=== PATIENT | female | born 1985 | race African-American/Black ===

== ENCOUNTER 2021-06-09 15:16 | Emergency (ER) | payer OTHER, SELFPAY ==
--- NOTE | ~2021-06-09 | XR_ITS ---
EXAMINATION: XR chest 2V DATE: 06/09/2021 17:18 INDICATION: Cough, fever, chills and bodyaches. TECHNIQUE: PA and lateral views of the chest were obtained. COMPARISON: Chest radiograph dated 01/20/2014 FINDINGS: The lungs remain clear with no focal airspace opacities, pulmonary edema, pleural effusion or pneumot horax. The cardiomediastinal silhouette is normal. Visualized bones and soft tissues are unremarkable . IMPRESSION: 1. No acute cardiopulmonary disease. Reviewed, dictated and finalized at location A.
[2021-06-09 15:39] VITALS: BP 159/103; PULSE 80; RESP 16; TEMP 36.9; O2SAT 100
--- NOTE | 2021-06-09 17:06 | ED.FEVER ---
HPI - Fever General Chief Complaint: Fever Stated Complaint: chills, aches, fever Time Seen by Provider: 06/09/21 16:47 History of Present Illness HPI Narrative: 35-year-old female presents to the emergency room cute onset of body aches, fever, generalized weakness for 4 days. Patient states that she has been alternating Tylenol and ibuprofen for aches and pains and fever. 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 Patient reports an acute onset of cough that began today. Patient denies any shortness of breath or difficulty breathing. Related Data Allergies Allergy/AdvReac Type Severity Reaction Status Date / Time No Known Allergies Allergy Unknown Unverified 10/09/16 11:30 Review of Systems Review of Systems: CONSTITUTIONAL: Reports fever, body aches EYES: Denies visual changes, redness, or discharge. ENT: Denies rhinorrhea, congestion, sore throat, or otalgia. CARDIOVASCULAR: Denies chest pain, palpitations, or edema. RESPIRATORY: Denies cough or dyspnea. GASTROINTESTINAL: Denies abdominal pain, nausea, vomiting, or diarrhea. GENITOURINARY: Reports cough SKIN: Denies rash or itching. MUSCULOSKELETAL: Denies back pain, joint pain, or myalgia. NEUROLOGIC: Reports weakness PSYCHIATRIC: Denies anxiety or depression. [facility] Social History Social History Smoking status: Current every day smoker Alcohol intake: never Exam Narrative: GENERAL: Well-appearing, well-nourished, and in no acute distress. HEAD: Normocephalic, atraumatic. EYES: PERRLA and EOMI. CHEST: Clear to auscultation. No respiratory distress. No wheezes rales or rhonchi HEART: Regular rate and rhythm. No murmur heard. Normal peripheral pulses. ABDOMEN: Soft, nontender, nondistended, normal active bowel sounds. EXTREMITIES: Normal range of motion. No edema. SKIN: Warm, dry, no rash. NEURO: No focal deficits. Alert and oriented x3. PSYCH: Normal mood and affect. Course AMBULATORY NURSE/PA Physician Supervision 1830: Discussed with patient that her blood sugar was over 375. Patient states that she just recently ate something. Also told patient that her hemoglobin A1c was over 10, and that her diabetes was out of control. Patient states that she no longer takes her glipizide, as she is trying to manage her blood sugars through diet. Strongly encourage patient to follow-up with her PCP to restart her diabetes medications. Patient stated understanding Vital Signs Vital signs: Vital Signs Temperature 36.9 C 06/09/21 15:39 Pulse Rate 80 06/09/21 15:39 Respiratory Rate 16 06/09/21 15:39 Blood Pressure 159/103 H 06/09/21 15:39 Pulse Oximetry 100 06/09/21 15:39 Temperature 36.9 C 06/09/21 15:39 Pulse Rate 80 06/09/21 15:39 Respiratory Rate 16 06/09/21 15:39 Blood Pressure 159/103 H 06/09/21 15:39 Pulse Oximetry 100 06/09/21 15:39 MDM - Fever Medical Records Attestation: I reviewed the patient's medical records. Lab Data Attestation: I reviewed the patient's lab results. Labs: Influenza A Screen Negative Reference Range: Negative Influenza B Screen Negative Reference Range: Negative Imaging Data Radiologist's impression: Impressions Chest X-Ray 06/09/21 17:20 IMPRESSION: 1. No acute cardiopulmonary disease. Discharge Plan Discharge Clinical Impression: COVID Type 2 diabetes mellitus Qualifiers: Diabetes mellitus correction insulin use: without assistant terminal manager use Diabetes mellitus complication status: without complication Qualified Code(s): E11.9 - Type 2 diabetes mellitus without complications Patient Disposition: Home, Self-Care Condition: Stable Instructions: Antibiotic Form, COVID-19 (Coronavirus Disease 2019) (ED) Prescriptions: New metformin 500 mg tabl
[2021-06-09 17:16] LABS: Basophils Percent Auto 0.9 % (0.2-1.2); Eosinophils Percent Auto 0.6 % (0-4.4); Hematocrit 45.2 % (37.0-47.0); Hemoglobin 14.8 g/dL (12.0-15.0); Immature Granulocyte Absolute 0.01 K/mm3 (0.00-0.031); Immature Granulocyte Percent A 0.2 % (0-0.5); Lymphocytes Absolute Auto 2.93 K/mm3 (0.9-3.2); Mean Corpuscular HGB Conc 32.7 g/dl (32-36); Mean Corpuscular Hemoglobin 28.8 pg (26-34); Mean Corpuscular Volume 87.9 fl (80-100); Mean Platelet Volume 10.1 fl (7.4-10.4); Monocytes Absolute Auto 0.5 K/mm3 (0.1-0.6); Monocytes Percent Auto 9.7 % (2.6-8.5); Neutrophils Absolute Auto 1.2 K/mm3 (1.3-6.7); Neutrophils Percent Auto 25.6 % (45.5-73.1); Platelet Count Result 189 k/mm3 (150-375); Red Blood Count 5.14 M/mm3 (4.2-5.4); Red Cell Distribution Width 13.1 % (11.5-14.5); White Blood Count 4.7 K/mm3 (4.5-10.0)
[2021-06-09 17:28] LABS: Alanine Aminotransferase 22 U/L (4-35); Albumin Level 3.7 g/dL (3.5-5.1); Alkaline Phosphatase 71 U/L (38-126); Anion Gap 7 mmol/L (8-16); Aspartate Amino Transferase 31 U/L (14-36); Bilirubin,Total 0.4 mg/dL (0.2-1.3); Blood Urea Nitrogen 8 mg/dL (7-17); Calcium 8.6 mg/dL (8.4-10.2); Carbon Dioxide 25 mmol/L (22-30); Chloride 101 mmol/L (98-107); Estimated CRCL calculation 147 ml/min; Estimated Glomerular Filt Rate > 60; Glucose 360 mg/dL (65-110); Potassium 3.9 mmol/L (3.4-5.0); Sodium 133 mmol/L (137-145)
[2021-06-09 17:52] LABS: SARS-CoV-2 RNA PCR Positive
[2021-06-09 18:20] LABS: Hemoglobin A1C 10.1 % (<5.7)
== END 2021-06-09 18:48 | disposition home or self-care (01) ==
LOC: ANHED 18:34
PROVIDERS: Emergency Provider Nurse Practitioner Family; PCP Physician Assistant
DX: U07.1 COVID-19 (principal); E11.9 Type 2 diabetes mellitus without complications; F17.200 Nicotine dependence, unspecified, uncomplicated
CPT/HCPCS: 36415; 71046; 80053; 83036; 85025; 87804; 99283; C9803; U0003; U0005

== ENCOUNTER 2021-06-26 17:37 | Emergency (ER) | payer OTHER, SELFPAY ==
--- NOTE | ~2021-06-26 | XR_ITS ---
EXAM: XR knee RT min 4V HISTORY: Pain w/ Heat . COMPARISON: None available. FINDINGS: Normal mineralization. No fracture or dislocation. No lytic or blastic lesion. Moderate tr icompartmental osteoarthritis. No erosion or periosteal change. Soft tissues within normal limits. La rge volume joint effusion. IMPRESSION: No acute osseous finding in the right knee. Reviewed, dictated and finalized at location K.
[2021-06-26 17:47] VITALS: BP 183/93; PULSE 84; RESP 18; TEMP 36.2; O2SAT 100
--- NOTE | 2021-06-26 19:25 | ED.GENADULT ---
HPI - General Adult General Chief complaint: Extremity Injury, Lower Stated complaint: R KNEE INJURY Time Seen by Provider: 06/26/21 19:14 Source: patient Mode of arrival: ambulatory Limitations: no limitations History of Present Illness HPI narrative: 35-year-old female presenting to the emergency department for evaluation of right knee pain. Patient states on Saturday or Saturday she missed stepped while going upstairs and did twist her right knee. Patient has been taking Tylenol and ibuprofen for pain control. Patient states she has had persistent pain with weightbearing. Patient states due to her job she is unable to rest of the knee. Patient describes medial knee pain that radiates anteriorly. Related Data Allergies Allergy/AdvReac Type Severity Reaction Status Date / Time amoxicillin AdvReac Rash Verified 06/26/21 17:51 Review of Systems Review of Systems: CONSTITUTIONAL: Denies fever, chills, or sweats. EYES: Denies visual changes, redness, or discharge. ENT: Denies rhinorrhea, congestion, sore throat, or otalgia. CARDIOVASCULAR: Denies chest pain, palpitations, or edema. RESPIRATORY: Denies cough or dyspnea. GASTROINTESTINAL: Denies abdominal pain, nausea, vomiting, or diarrhea. GENITOURINARY: Denies dysuria or hematuria. SKIN: Denies rash or itching. MUSCULOSKELETAL: See HPI NEUROLOGIC: Denies headache, numbness, or weakness. All systems reviewed & are unremarkable except as noted in HPI and below PMFSH Social History Social History Smoking status: Current every day smoker Alcohol intake: never Exam Narrative: APPEARANCE: Well appearing, no pain, no distress, well-nourished. HEAD: normocephalic, atraumatic. EYES: PERRLA/EOMI, conjunctivae clear. NECK: Supple. No adenopathy, no masses. RESPIRATORY: Airway patent, respirations nonlabored. Clear to auscultation bilaterally, no rales, rhonchi, wheezing. CARDIOVASCULAR: Regular rate and rhythm without murmurs rubs or gallops. ABDOMINAL: Soft, nontender, nondistended, normal bowel sounds MUSCULOSKELETAL: Anterior knee tenderness to palpation. No effusion, no ecchymosis, no deformity.. NEURO: Alert. Cranial nerves II through XII intact. Grossly intact SKIN: Warm, dry. Normal Color Course Course Emergency Course: Patient was updated on the results of her x-ray. X-ray showed no acute fracture or deformity. Patient was provided crutches and knee immobilizer for limited weightbearing. Patient was encouraged to have close follow-up with her primary care physician and with orthopedics. All questions concerns were addressed Vital Signs Vital signs: Vital Signs Temperature 97.2 F L 06/26/21 17:47 Pulse Rate 84 06/26/21 17:47 Respiratory Rate 18 06/26/21 17:47 Blood Pressure 183/93 H 06/26/21 17:47 Pulse Oximetry 100 06/26/21 17:47 Temperature 97.2 F L 06/26/21 17:47 Pulse Rate 76 06/26/21 19:43 Respiratory Rate 14 06/26/21 19:43 Blood Pressure 156/96 H 06/26/21 19:43 Pulse Oximetry 100 06/26/21 19:43 Medical Decision Making Vital Signs Vital Signs: Vital Signs Temperature 97.2 F L 06/26/21 17:47 Pulse Rate 84 06/26/21 17:47 Respiratory Rate 18 06/26/21 17:47 Blood Pressure 183/93 H 06/26/21 17:47 Pulse Oximetry 100 06/26/21 17:47 Temperature 97.2 F L 06/26/21 17:47 Pulse Rate 76 06/26/21 19:43 Respiratory Rate 14 06/26/21 19:43 Blood Pressure 156/96 H 06/26/21 19:43 Pulse Oximetry 100 06/26/21 19:43 Imaging Data Radiologist's impression: IMPRESSION: No acute osseous finding in the right knee. Discharge Plan Discharge Clinical Impression: Knee strain Qualifiers: Encounter type: initial encounter Laterality: right Qualified Code(s): S86.911A - Strain of unspecified muscle(s) and tendon(s) at lower leg level, right leg, initial encounter Patient Disposition: Home, Self-Care Condition: Stable Instructions: Antibiotic Form,
[2021-06-26 19:43] VITALS: BP 156/96; PULSE 76; RESP 14; O2SAT 100
== END 2021-06-26 19:48 | disposition home or self-care (01) ==
LOC: ANHED 19:43
PROVIDERS: Emergency Provider Emergency Medicine; PCP Physician Assistant
DX: S86.911A Strain of unspecified muscle(s) and tendon(s) at lower leg level, right leg, initial encounter (principal); F17.200 Nicotine dependence, unspecified, uncomplicated; X50.9XXA Other and unspecified overexertion or strenuous movements or postures, initial encounter
CPT/HCPCS: 73140; 73564; 99283

== ENCOUNTER 2021-12-10 07:55 | Emergency (ER) | payer OTHER, SELFPAY ==
[2021-12-10 07:58] VITALS: BP 191/100; PULSE 87; RESP 20; TEMP 36.9; O2SAT 100
[2021-12-10 08:56] LABS: Influenza A QL RT-PCR Negative (Negative); Influenza B QL RT-PCR Negative (Negative); SARS-CoV-2 RNA PCR Negative
--- NOTE | 2021-12-10 09:35 | ED.URI ---
HPI - URI/Sore Throat General Chief Complaint: Upper Respiratory Infection Stated Complaint: cough x 1 week Time Seen by Provider: 12/10/21 08:56 History of Present Illness HPI Narrative: 36-year-old female history of diabetes presents to the emergency room for evaluation of sinus congestion, postnasal drip, sneezing, productive cough, irritated throat and popping sensation in her ears. Reports symptoms of been present for a week has been taking Tylenol and TheraFlu with no relief. Denies fevers, shortness of breath or difficulty breathing. Denies chest pains. Related Data Allergies Allergy/AdvReac Type Severity Reaction Status Date / Time amoxicillin AdvReac Rash Verified 06/26/21 17:51 Review of Systems Review of Systems: CONSTITUTIONAL: Denies fever, chills, or sweats. EYES: Denies visual changes, redness, or discharge. ENT: Reports rhinorrhea, congestion, sore throat, or otalgia. CARDIOVASCULAR: Denies chest pain, palpitations, or edema. RESPIRATORY: Reports cough GASTROINTESTINAL: Denies abdominal pain, nausea, vomiting, or diarrhea. GENITOURINARY: Denies dysuria or hematuria. SKIN: Denies rash or itching. MUSCULOSKELETAL: Denies back pain, joint pain, or myalgia. NEUROLOGIC: Denies headache, numbness, dizziness, or weakness. PSYCHIATRIC: Denies anxiety or depression. [facility] Social History Social History Smoking status: Current every day smoker Alcohol intake: never Exam Narrative: GENERAL: Well-appearing, well-nourished, no physical limitations, and in no acute distress. HEAD: Normocephalic, atraumatic. EYES: Conjunctivae normal, PERRLA and EOMI. ENT: External nose normal, clear rhinorrhea. Mucous membranes moist. Oropharynx without tonsillar hypertrophy exudate or other lesions. External ears normal, bilateral TMs normal bilaterally with clear effusion NECK: Supple. No adenopathy or masses. CHEST: Clear to auscultation. No respiratory distress. No wheezes rales or rhonchi. HEART: Regular rate and rhythm. No murmur heard. Normal peripheral pulses. EXTREMITIES: Normal range of motion. No edema. No clubbing or cyanosis SKIN: Warm, dry, no rash. No noted wounds NEURO: No focal deficits. Alert and oriented x3. MAEW. CN's II-XI intact bilaterally, normal gait PSYCH: Cooperative. Normal mood and affect. Course Vital Signs Vital signs: Vital Signs Temperature 36.9 C 12/10/21 07:58 Pulse Rate 87 12/10/21 07:58 Respiratory Rate 20 12/10/21 07:58 Blood Pressure 191/100 H 12/10/21 07:58 Pulse Oximetry 100 12/10/21 07:58 Oxygen Delivery Room Air 12/10/21 07:58 Temperature 36.9 C 12/10/21 07:58 Pulse Rate 87 12/10/21 07:58 Respiratory Rate 20 12/10/21 07:58 Blood Pressure 191/100 H 12/10/21 07:58 Pulse Oximetry 100 12/10/21 07:58 Oxygen Delivery Room Air 12/10/21 07:58 MDM - URI/Sore Throat Lab Data Labs: Lab Results 12/10/21 Range/Units 08:02 Influenza A (RT-PCR) Negative (Negative) Influenza B (RT-PCR) Negative (Negative) SARS-CoV-2 RNA (RT-PCR) Negative Discharge Plan Discharge Clinical Impression: Upper respiratory infection Patient Disposition: Home, Self-Care Condition: Stable Instructions: Antibiotic Form, Cold Symptoms (ED) Prescriptions: New pseudoephedrine HCl [Sudogest] 30 mg tablet 30 mg PO Q4-6H PRN (Reason: nasal congestion) Qty: 30 0RF Rx Instructions: DNExceed 4 doses/24h fluticasone propionate [24 Hour Allergy Relief] 50 mcg/actuation spray,suspension 1 spray intranasal DAILY Qty: 16 0RF Rx Instructions: administer into each nostril prednisone 20 mg tablet 20 mg PO DAILY Qty: 5 0RF loratadine [Allergy Relief (loratadine)] 10 mg tablet 10 mg PO DAILY Qty: 30 0RF No Action metformin 500 mg tablet 500 mg PO BID Qty: 60 0RF hydrocodone-acetaminophen 5-325 mg tablet 1 tablet PO Q8H PRN (Reason: pa
[2021-12-10 09:45] VITALS: RESP 16
== END 2021-12-10 09:46 | disposition home or self-care (01) ==
PROVIDERS: Emergency Medicine; Emergency Provider Nurse Practitioner Family; PCP Physician Assistant
DX: J06.9 Acute upper respiratory infection, unspecified (principal); Z20.822 Contact with and (suspected) exposure to COVID-19; E11.9 Type 2 diabetes mellitus without complications; F17.200 Nicotine dependence, unspecified, uncomplicated; Z79.84 Long term (current) use of oral hypoglycemic drugs
CPT/HCPCS: 87502; 96372; 99283; J1100; U0003; U0005

== ENCOUNTER 2022-02-08 16:43 | Emergency (ER) | payer OTHER, SELFPAY ==
[2022-02-08 16:49] VITALS: BP 179/93; PULSE 94; RESP 16; TEMP 37.4; O2SAT 99
--- NOTE | 2022-02-08 17:50 | ED.SKABFB ---
HPI - Skin/Abscess/Foreign Bdy General Chief complaint: Skin/Abscess/Foreign Body Stated complaint: SCALP SORE L FACIAL SWELLING Time Seen by Provider: 02/08/22 17:27 History of Present Illness HPI narrative: 36-year-old female history of diabetes presents to the emergency room for evaluation of a painful. States ulceration to the top of her scalp. Patient noted some redness and tenderness on her scalp at the base of one of her hair extensions. Patient states that she release to her extension to find an area that was red, painful, warm to the touch and draining purulent drainage. States since yesterday she has began to develop some swelling to the left side of her scalp that extends into the left side of her face. Patient also endorses a low-grade fever and generalized malaise. Has been regular taking Tylenol and ibuprofen with no relief. Related Data Allergies Allergy/AdvReac Type Severity Reaction Status Date / Time amoxicillin AdvReac Rash Verified 06/26/21 17:51 Review of Systems Review of Systems: CONSTITUTIONAL: Denies fever, chills, or sweats. EYES: Denies visual changes, redness, or discharge. ENT: Denies rhinorrhea, congestion, sore throat, or otalgia. CARDIOVASCULAR: Denies chest pain, palpitations, or edema. RESPIRATORY: Denies cough or dyspnea. GASTROINTESTINAL: Denies abdominal pain, nausea, vomiting, or diarrhea. GENITOURINARY: Denies dysuria or hematuria. SKIN: Denies rash or itching. MUSCULOSKELETAL: Denies back pain, joint pain, or myalgia. NEUROLOGIC: Denies headache, numbness, dizziness, or weakness. PSYCHIATRIC: Denies anxiety or depression. PMFSH Social History Social History Smoking status: Current every day smoker Alcohol intake: never Exam Narrative: GENERAL: Well-appearing, well-nourished, no physical limitations, and in no acute distress. HEAD: Normocephalic, atraumatic. EYES: Conjunctivae normal, PERRLA and EOMI. CHEST: Clear to auscultation. No respiratory distress. No wheezes rales or rhonchi. HEART: Regular rate and rhythm. No murmur heard. Normal peripheral pulses. ABDOMEN: Soft, nontender, nondistended, normal active bowel sounds. SKIN: Scalp: 1 x 1 cm area of ulceration with surrounding erythema draining purulent drainage. Swelling noted to the scalp that extends into the left side of the face. NEURO: No focal deficits. Alert and oriented x3. MAEW. CN's II-XI intact bilaterally, normal gait PSYCH: Cooperative. Normal mood and affect. Course Vital Signs Vital signs: Vital Signs Temperature 37.4 C 02/08/22 16:49 Pulse Rate 94 02/08/22 16:49 Respiratory Rate 16 02/08/22 16:49 Blood Pressure 179/93 H 02/08/22 16:49 Pulse Oximetry 99 02/08/22 16:49 Oxygen Delivery Room Air 02/08/22 16:49 Temperature 37.4 C 02/08/22 16:49 Pulse Rate 94 02/08/22 16:49 Respiratory Rate 16 02/08/22 16:49 Blood Pressure 179/93 H 02/08/22 16:49 Pulse Oximetry 99 02/08/22 16:49 Oxygen Delivery Room Air 02/08/22 16:49 Discharge Plan Discharge Clinical Impression: Cellulitis, Abscess of skin or subcutaneous tissue Patient Disposition: Home, Self-Care Condition: Stable Instructions: Antibiotic Form, Cellulitis (ED), Abscess (ED) Prescriptions: New sulfamethoxazole-trimethoprim [Bactrim DS] 800-160 mg tablet 2 tablet PO Q12H 7 Days Qty: 28 0RF acetaminophen-codeine 300-15 mg tablet 1 tablet PO Q8H PRN (Reason: pain) Qty: 12 0RF No Action metformin 500 mg tablet 500 mg PO BID Qty: 60 0RF hydrocodone-acetaminophen 5-325 mg tablet 1 tablet PO Q8H PRN (Reason: pain) Qty: 10 0RF pseudoephedrine HCl [Sudogest] 30 mg tablet 30 mg PO Q4-6H PRN (Reason: nasal congestion) Qty: 30 0RF Rx Instructions: DNExceed 4 doses/24h fluticasone propionate [24 Hour Allergy Relief] 50 mcg/actuation spray,suspension 1 spray intranasal DAILY Qty: 16 0RF Rx Instructions:
[2022-02-08] MEDS: SULFAMETHOXAZOLE/TRIMETHOPRIM 800/160 MG DS TABLET 2 TAB PO (18:46)
[2022-02-08] MEDS: ACETAMINOPHEN/CODEINE (*CRX) 300/30 MG TABLET 1 TAB PO (18:47)
== END 2022-02-08 18:51 | disposition home or self-care (01) ==
LOC: ANHED 18:18
PROVIDERS: Emergency Provider Nurse Practitioner Family; PCP Physician Assistant
DX: L03.811 Cellulitis of head [any part, except face] (principal); F17.200 Nicotine dependence, unspecified, uncomplicated
CPT/HCPCS: 99283; A9270

== ENCOUNTER 2022-09-03 13:40 | Emergency (ER) | payer OTHER, SELFPAY ==
--- NOTE | ~2022-09-03 | XR_ITS ---
XR abdomen obstructive series DATE: 09/03/2022 15:48 INDICATION: TECHNIQUE: Supine and upright AP views COMPARISON: None FINDINGS: The psoas shadows are intact. There is no evidence of bowel obstruction. There is a modera tely prominent of fecal material in the colon. No visceromegaly or abnormal calcification is evident. Heart size appears normal. The lung bases are clear. No intraperitoneal free air is detected. IMPRESSION: No significant abnormality Reviewed, dictated and finalized at Location [facility]. Reviewed, dictated and finalized at location B. IMPRESSION: No significant abnormality
[2022-09-03 13:44] VITALS: BP 150/92; PULSE 102; RESP 14; TEMP 36.9; O2SAT 100
[2022-09-03 13:57] LABS: Basophils Percent Auto 0.5 % (0.2-1.2); Eosinophils Absolute Auto 0.1 K/mm3 (0-0.3); Hematocrit 40.3 % (37.0-47.0); Hemoglobin 12.9 g/dL (12.0-15.0); Immature Granulocyte Absolute 0.04 K/mm3 (0.00-0.031); Immature Granulocyte Percent A 0.5 % (0-0.5); Lymphocytes Absolute Auto 3.04 K/mm3 (0.9-3.2); Lymphocytes Percent Auto 36.8 % (18.3-44.2); Mean Corpuscular Volume 87.4 fl (80-100); Mean Platelet Volume 9.6 fl (7.4-10.4); Monocytes Absolute Auto 0.6 K/mm3 (0.1-0.6); Monocytes Percent Auto 7.1 % (2.6-8.5); Neutrophils Absolute Auto 4.5 K/mm3 (1.3-6.7); Neutrophils Percent Auto 54.1 % (45.5-73.1); Platelet Count Result 314 k/mm3 (150-375); Red Blood Count 4.61 M/mm3 (4.2-5.4); Red Cell Distribution Width 13.3 % (11.5-14.5); White Blood Count 8.3 K/mm3 (4.5-10.0)
[2022-09-03 14:09] LABS: Alanine Aminotransferase 25 U/L (6-35); Albumin Level 4.1 g/dL (3.5-5.1); Alkaline Phosphatase 69 U/L (38-126); Anion Gap 8 mmol/L (8-16); Aspartate Amino Transferase 25 U/L (14-36); Bilirubin,Total 0.6 mg/dL (0.2-1.3); Blood Urea Nitrogen 11 mg/dL (7-17); Carbon Dioxide 22 mmol/L (22-30); Chloride 106 mmol/L (98-107); Estimated CRCL calculation 123 ml/min; Estimated Glomerular Filt Rate > 60; Glucose 206 mg/dL (65-110); Lipase 67 U/L (23-300); Potassium 3.7 mmol/L (3.4-5.0); Sodium 136 mmol/L (137-145)
--- NOTE | 2022-09-03 14:41 | PC.NURSE ---
Pt back to room and unable to urinate at this time, water given for hydration.
[2022-09-03 15:10] LABS: Appearance Urine Turbid (Clear); Bacteria Urine None Seen /hpf; Bilirubin Urine Negative (Negative); Blood Urine 3+ (Negative); Color Urine Dark Yellow (Yellow); Glucose Urine UA Trace mg/dL (Negative); Ketones Urine Trace mg/dL (Negative); Leukocyte Esterase Ur 3+ LEU/UL (Negative); Nitrate Urine Negative (Negative); Protein Urine 3+ mg/dL (Negative); RBC Urine >100 /hpf (0-2); Specific Grav Ur 1.024 (1.001-1.035); Squamous Epithelial Cell Urine Occasional /hpf (Few); WBC Urine >100 /hpf; pH Urine 5.5 (5.0-9.0)
[2022-09-03 15:14] LABS: Add Urine Microscopic? YES
--- NOTE | 2022-09-03 15:41 | ED.FEMALEGU ---
HPI - Female Genitourinary General Chief complaint: Urogenital-Female Stated complaint: uti symptoms/vomiting Time Seen by Provider: 09/03/22 14:51 History of Present Illness HPI Narrative: 36-year-old female presented the emergency department for evaluation of increased urinary pressure. Patient states that she did have some urinary pressure last week and did have some nausea and vomiting on Saturday. Patient denies any specific burning with urination. Related Data Allergies Allergy/AdvReac Type Severity Reaction Status Date / Time amoxicillin AdvReac Rash Verified 06/26/21 17:51 Review of Systems Review of Systems: All systems reviewed & are unremarkable except as noted in HPI and below PMFSH Social History Social History Smoking status: Current every day smoker Alcohol intake: never Exam Narrative: APPEARANCE: Well appearing, no pain, no distress, well-nourished. HEAD: normocephalic, atraumatic. EYES: PERRLA/EOMI, conjunctivae clear. NOSE: Normal no drainage NECK: Supple. No adenopathy, no masses. RESPIRATORY: Airway patent, respirations nonlabored. Clear to auscultation bilaterally, no rales, rhonchi, wheezing. CARDIOVASCULAR: Regular rate and rhythm without murmurs rubs or gallops. ABDOMINAL: Soft, nontender, nondistended, normal bowel sounds MUSCULOSKELETAL: Moves all extremities. Strength/ROM intact, No edema, No calf tenderness. NEURO: Alert. Cranial nerves II through XII intact. Grossly intact SKIN: Warm, dry. Normal Color Course Course Emergency Course: 36-year-old female presented ED for evaluation of urinary symptoms. Patient was afebrile with no leukocytosis. Patient's creatinine is at baseline. No significant [place] abnormalities. UA is concerning for urinary tract infection. Urine culture is pending. Patient does have a history of allergies to amoxicillin so she was started on Bactrim. X-ray was negative for obstruction. Patient was updated results of the work-up and plan for treatment with antibiotics for urinary tract infection. Patient was encouraged to increase her water intake and to take MiraLAX for her constipation. All questions and concerns were addressed Vital Signs Vital signs: Vital Signs Temperature 98.5 F 09/03/22 13:44 Pulse Rate 102 H 09/03/22 13:44 Respiratory Rate 14 09/03/22 13:44 Blood Pressure 150/92 H 09/03/22 13:44 Pulse Oximetry 100 09/03/22 13:44 Oxygen Delivery Room Air 09/03/22 13:44 Temperature 98.5 F 09/03/22 13:44 Pulse Rate 91 09/03/22 17:44 Respiratory Rate 18 09/03/22 17:44 Blood Pressure 141/87 H 09/03/22 17:44 Pulse Oximetry 98 09/03/22 17:44 Oxygen Delivery Room Air 09/03/22 13:44 MDM - Female Genitourinary Differential Diagnosis Differential diagnosis: Likely urinary tract infection Lab Data Attestation: I reviewed the patient's lab results. 09/03/22 13:48 09/03/22 13:48 Labs: Lab Results 09/03/22 09/03/22 Range/Units 13:48 14:59 WBC 8.3 (4.5-10.0) K/mm3 RBC 4.61 (4.2-5.4) M/mm3 Hgb 12.9 (12.0-15.0) g/dL Hct 40.3 (37.0-47.0) % MCV 87.4 (80-100) fl MCH 28.0 (26-34) pg MCHC 32.0 (32-36) g/dl RDW 13.3 (11.5-14.5) % Plt Count 314 D (150-375) k/mm3 MPV 9.6 (7.4-10.4) fl Immature Gran % (Auto) 0.5 (0-0.5) % Neut % (Auto) 54.1 (45.5-73.1) % Lymph % (Auto) 36.8 (18.3-44.2) % [place] % (Auto) 7.1 (2.6-8.5) % Eos % (Auto) 1.0 (0-4.4) % Baso % (Auto) 0.5 (0.2-1.2) % Lymph # (Auto) 3.04 (0.9-3.2) K/mm3 [place] # (Auto) 0.6 (0.1-0.6) K/mm3 Eos # (Auto) 0.1 (0-0.3) K/mm3 Baso # (Auto) 0.0 (0.0-0.1) K/mm3 Abs Immat Gran (auto) 0.04 H (0.00-0.031) K/mm3 Absolute Neuts (auto) 4.5 (1.3-6.7) K/mm3 Absolute Nucleated RBC 0.0 (0.0-0.012) K/mm3 Nucleated RBC % 0.0 (0.0-0.2) % Sodium 136 L (137-145) mmol/L Potassium 3.7
[2022-09-03] MEDS: SULFAMETHOXAZOLE/TRIMETHOPRIM 800/160 MG DS TABLET 1 TAB PO (15:49)
[2022-09-03 17:44] VITALS: BP 141/87; PULSE 91; RESP 18; O2SAT 98
== END 2022-09-03 17:47 | disposition home or self-care (01) ==
PROVIDERS: Emergency Medicine; Emergency Provider Emergency Medicine; PCP Physician Assistant
DX: N39.0 Urinary tract infection, site not specified (principal); F17.200 Nicotine dependence, unspecified, uncomplicated
CPT/HCPCS: 36415; 74019; 80053; 81001; 81025; 83690; 85025; 87077; 87086; 87186; 99283; A9270

== ENCOUNTER 2023-02-01 15:58 | Outpatient (CLI) | payer OTHER, SELFPAY ==
--- NOTE | ~2023-02-01 | US_ITS ---
US OB <=14 wk fetus w TV DATE: 02/01/2023 17:25 INDICATION: with inconclusive viability TECHNIQUE: Real-time imaging and Doppler analysis COMPARISON: None FINDINGS: The uterus measures 10.6 cm height, 6.6 cm AP and 7 cm transverse dimension. An intrauterine gestational sac is identified with pole and yolk sac noted. heart rate of 173 bpm. [place]-rump length 0.9 cm consistent with estimated gestational age of 7 weeks +/- 4 days with WANDY of 09/20/2023. There is some apparent blood in the endometrial cavity. Approximately 2 cm left ovarian cyst. There is a complex mass in the right adnexal area measuring up to 10.6 x 8.8 cm, with containing some fat, with some shadowing. Consider dermoid. 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 Reviewed, dictated and finalized at location A. 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
== END 2023-02-01 15:59 | disposition home or self-care (01) ==
PROVIDERS: PCP Physician Assistant; Visit Provider Registered Nurse
DX: O36.80X0 Pregnancy with inconclusive fetal viability, not applicable or unspecified (principal); Z3A.01 Less than 8 weeks gestation of pregnancy; N83.202 Unspecified ovarian cyst, left side
CPT/HCPCS: 76801; 76817

== ENCOUNTER 2023-02-21 14:01 | Outpatient (CLI) | payer OTHER, SELFPAY ==
[2023-02-24 04:25] LABS: CA-125 90 U/mL (<35)
== END 2023-02-21 14:02 | disposition home or self-care (01) ==
LOC: ANHLAB 14:02
PROVIDERS: PCP Physician Assistant; Visit Provider Obstetrics & Gynecology
DX: O34.81 Maternal care for other abnormalities of pelvic organs, first trimester (principal); N94.89 Other specified conditions associated with female genital organs and menstrual cycle
CPT/HCPCS: 36415; 86304

== ENCOUNTER 2023-02-27 10:25 | Emergency (ER) | payer OTHER, SELFPAY ==
--- NOTE | ~2023-02-27 | US_ITS ---
CORRECTED REPORT corrected examination description [facility] [place] This report was recreated on 02/28/23. Original report was DER HEN SERVICE TECHNICIAN EXAMINATION: US OB <= 14 weeks fetus w TV DATE: INDICATION: Abdominal pain during first trimester of TECHNIQUE: Real-time pelvic ultrasound utilizing both a transvaginal and transabdominal probe was performed. The interpreting radiologist was not present for the study. COMPARISON: None. FINDINGS: The uterus measures 9.4 x 6.3 x 7.4 cm. There is an intrauterine gestational sac. A yolk sac and pole are identified. The crown rump length measures 2.1 cm, which correlates with an estimated gestational age of 8 weeks and 5 days. This is significantly discordant with the estimated gestational age of 10 weeks and 5 days based upon the ultrasound from approximately 4 weeks prior. There is no evident heart motion on either cine grayscale, color or M-mode Doppler consistent with demise. Again seen is an 8.3 x 5.2 x 7.7 cm mass which is peripherally hypoechoic and centrally hypoechoic with posterior acoustic shadowing which is suggestive of an ovarian dermoid. The left ovary measures 4.0 x 2.4 x 3.6 cm. No significant interval change in a 2.1 cm anechoic left ovarian cyst/follicle. There is no free fluid in the pelvis. IMPRESSION: 1. demise with single intrauterine gestational sac containing a pole which has not demonstrated appropriate interval growth and which is without evident cardiac motion. 2. 8.3 cm right adnexal mass with appearance suspicious for an ovarian dermoid. Reviewed, dictated and finalized at location A. DER HEN SERVICE TECHNICIAN MTDD IMPRESSION: 1. demise with single intrauterine gestational sac containing a alex e which has not demonstrated appropriate interval growth and which is wit hout evident cardiac motion. 2. 8.3 cm right adnexal mass with appearance suspicious for an ovarian dermoid.
[2023-02-27 10:26] VITALS: BP 194/85; PULSE 77; RESP 18; TEMP 36.4; O2SAT 100
--- NOTE | 2023-02-27 10:45 | ED.ABDPAIN ---
HPI - Abdominal Pain General Chief Complaint: Abdominal Pain Stated Complaint: possible miscarriage Time Seen by Provider: 02/27/23 10:42 History of Present Illness HPI narrative: Patient is a 37-year-old female who presents to the emergency department this afternoon complaining of abdominal cramping which started yesterday. Patient states that she is approximately 8 weeks and is concerned that she is suffering a miscarriage. Patient states that she has had an ultrasound in this already around 7 weeks and at that time they did see an intrauterine with good heart tones. She is currently denying any vaginal bleeding or spotting. Patient denies any additional symptoms including chest pain, shortness of breath, nausea, vomiting, dysuria, hematuria, constipation, diarrhea, melena, hematochezia, fevers or chills. Patient also denies any headaches, dizziness, lightheadedness, blurry visions, focal weakness, numbness and or tingling. There are no other modifying, alleviating, or precipitating factors at this time. Related Data Home Medications Medication Instructions Recorded Confirmed dulaglutide 4.5 mg/0.5 mL 4.5 mg subcut WEEKLY 01/23/23 subcutaneous pen injector (Trulicity) Allergies Allergy/AdvReac Type Severity Reaction Status Date / Time amoxicillin AdvReac Rash Verified 02/26/23 13:16 Review of Systems Review of Systems: All systems are reviewed and are negative unless stated otherwise in the HPI. [facility] Past Medical History Medical History Enlarged thyroid Family History Family History Other Diabetes mellitus Social History Social History Smoking packs per day: 0.5 Smoking cigarettes per day: 10.0 Smoking status: Current every day smoker Tobacco type: cigarettes Alcohol intake: never Substance use: never Substance use type: does not use Lack of Transportation: No Lack of Food: Never True Current Housing: I Have Housing Concerned About Future Housing: No Difficulty Paying Gas/Electric Bills: No Difficulty Paying for Meds: No Currently Unemployed: No Difficulty w/ Childcare or Family Care: No Exam Narrative: General: Alert, awake, afebrile, in no acute distress. HEENT: PERRL, no rhinorrhea, no post nasal drip, oropharynx clear. Neck: Trachea midline, no JVD, no lymphadenopathy. Cardiovascular: Regular rate and rhythm, no murmurs, rubs or gallops, no peripheral edema. Respiratory: Clear to auscultation bilaterally, no tachypnea, no wheezing, no rhonchi, no rubs, no respiratory distress. Abdomen: Soft, nontender, nondistended, no rebound, no guarding, no peritoneal signs. Musculoskeletal: No joint swelling or deformity, normal muscle tone. Skin: No rashes or petechia, no signs of infection. Psychiatric: Alert and oriented, normal behavior and judgment for situation. Neurological: Alert and oriented to person, place, and time. Follows all commands. No focal deficits, speech is clear and fluent. Course Vital Signs Vital signs: Vital Signs Temperature 97.6 F 02/27/23 10:26 Pulse Rate 77 02/27/23 10:26 Respiratory Rate 18 02/27/23 10:26 Blood Pressure 194/85 H 02/27/23 10:26 Pulse Oximetry 100 02/27/23 10:26 Oxygen Delivery Room Air 02/27/23 10:26 Temperature 97.6 F 02/27/23 10:26 Pulse Rate 77 02/27/23 10:26 Respiratory Rate 18 02/27/23 10:26 Blood Pressure 170/80 H 02/27/23 13:49 Pulse Oximetry 100 02/27/23 10:26 Oxygen Delivery Room Air 02/27/23 10:26 MDM - Abdominal Pain MDM Narrative Medical decision making narrative: The patient was evaluated by myself in the emergency department. History is obtained from patient who is an independent historian and physical exam was performed. External medical records wer
[2023-02-27 11:01] LABS: Basophils Percent Auto 0.4 % (0.2-1.2); Eosinophils Absolute Auto 0.1 K/mm3 (0-0.3); Eosinophils Percent Auto 1.2 % (0-4.4); Hematocrit 39.1 % (37.0-47.0); Hemoglobin 12.3 g/dL (12.0-15.0); Immature Granulocyte Absolute 0.05 K/mm3 (0.00-0.031); Immature Granulocyte Percent A 0.6 % (0-0.5); Lymphocytes Absolute Auto 2.72 K/mm3 (0.9-3.2); Lymphocytes Percent Auto 32.8 % (18.3-44.2); Mean Corpuscular HGB Conc 31.5 g/dl (32-36); Mean Corpuscular Hemoglobin 28.2 pg (26-34); Mean Corpuscular Volume 89.7 fl (80-100); Monocytes Absolute Auto 0.5 K/mm3 (0.1-0.6); Neutrophils Absolute Auto 4.9 K/mm3 (1.3-6.7); Platelet Count Result 243 k/mm3 (150-375); Red Blood Count 4.36 M/mm3 (4.2-5.4); Red Cell Distribution Width 14.6 % (11.5-14.5); White Blood Count 8.3 K/mm3 (4.5-10.0)
[2023-02-27 11:11] LABS: Alanine Aminotransferase 13 U/L (6-35); Albumin Level 3.8 g/dL (3.5-5.1); Alkaline Phosphatase 57 U/L (38-126); Anion Gap 6 mmol/L (8-16); Aspartate Amino Transferase 18 U/L (14-36); Bilirubin,Total 0.7 mg/dL (0.2-1.3); Blood Urea Nitrogen 3 mg/dL (7-17); Calcium 8.9 mg/dL (8.4-10.2); Carbon Dioxide 24 mmol/L (22-30); Chloride 106 mmol/L (98-107); Estimated CRCL calculation 140 ml/min; Estimated Glomerular Filt Rate > 60; Glucose 166 mg/dL (65-110); Potassium 3.9 mmol/L (3.4-5.0); Sodium 136 mmol/L (137-145)
[2023-02-27 12:51] LABS: Appearance Urine Cloudy (Clear); Bacteria Urine 1+ /hpf; Bilirubin Urine Negative (Negative); Blood Urine 3+ (Negative); Color Urine Yellow (Yellow); Glucose Urine UA Negative (Negative); Ketones Urine Trace mg/dL (Negative); Leukocyte Esterase Ur Negative LEU/UL (Negative); Nitrate Urine Negative (Negative); Non Pathogenic Casts 0-2; Protein Urine Negative (Negative); Specific Grav Ur 1.014 (1.001-1.035); Squamous Epithelial Cell Urine Moderate /hpf (Few); WBC Urine 0-5 /hpf; pH Urine 5.5 (5.0-9.0)
[2023-02-27 12:57] LABS: Add Urine Microscopic? YES
[2023-02-27 13:49] VITALS: BP 170/80
[2023-02-27 13:51] VITALS: BP 170/87; PULSE 77; RESP 20; O2SAT 100
== END 2023-02-27 13:53 | disposition home or self-care (01) ==
PROVIDERS: Emergency Provider Emergency Medicine; PCP Physician Assistant
DX: O20.0 Threatened abortion (principal); Z3A.08 8 weeks gestation of pregnancy
CPT/HCPCS: 36415; 76801; 76817; 80053; 81001; 81025; 84702; 85025; 85461; 86850; 86900; 86901; 99284

== ENCOUNTER 2023-03-01 08:00 | Day surgery (SDC) | payer OTHER, SELFPAY ==
[2023-03-01] VITALS (21 sets, daily range): BP systolic 139–196; BP diastolic 67–108; PULSE 68–97; RESP 7–28; TEMP 36.5–37.7; O2SAT 98–100; BMI 45.2
[2023-03-01 08:56] LABS: Basophils Percent Auto 0.3 % (0.2-1.2); Eosinophils Absolute Auto 0.1 K/mm3 (0-0.3); Eosinophils Percent Auto 0.7 % (0-4.4); Immature Granulocyte Absolute 0.05 K/mm3 (0.00-0.031); Immature Granulocyte Percent A 0.5 % (0-0.5); Lymphocytes Absolute Auto 1.99 K/mm3 (0.9-3.2); Lymphocytes Percent Auto 21.6 % (18.3-44.2); Mean Corpuscular HGB Conc 31.7 g/dl (32-36); Mean Corpuscular Hemoglobin 28.1 pg (26-34); Mean Corpuscular Volume 88.6 fl (80-100); Monocytes Absolute Auto 0.6 K/mm3 (0.1-0.6); Monocytes Percent Auto 6.2 % (2.6-8.5); Neutrophils Absolute Auto 6.5 K/mm3 (1.3-6.7); Neutrophils Percent Auto 70.7 % (45.5-73.1); Platelet Count Result 254 k/mm3 (150-375); Red Blood Count 4.63 M/mm3 (4.2-5.4); Red Cell Distribution Width 14.6 % (11.5-14.5); White Blood Count 9.2 K/mm3 (4.5-10.0)
[2023-03-01 09:04] LABS: Alanine Aminotransferase 16 U/L (6-35); Albumin Level 4.1 g/dL (3.5-5.1); Alkaline Phosphatase 65 U/L (38-126); Anion Gap 9 mmol/L (8-16); Aspartate Amino Transferase 19 U/L (14-36); Bilirubin,Total 0.7 mg/dL (0.2-1.3); Blood Urea Nitrogen 5 mg/dL (7-17); Calcium 9.2 mg/dL (8.4-10.2); Carbon Dioxide 21 mmol/L (22-30); Chloride 105 mmol/L (98-107); Estimated Glomerular Filt Rate > 60; Glucose 225 mg/dL (65-110); Potassium 3.9 mmol/L (3.4-5.0); Sodium 135 mmol/L (137-145)
[2023-03-01] MEDS: ONDANSETRON INJ 4 MG/2 ML VIAL IV PUSH ×2 (09:50→10:43)
[2023-03-01] MEDS: MORPHINE SULFATE (*CRX) 4 MG/ML INJ IV PUSH (09:50)
[2023-03-01] MEDS: KETOROLAC 15 MG/ML VIAL (*BKC) IV PUSH (10:34)
--- NOTE | 2023-03-01 10:39 | ED.GENADULT ---
HPI - General Adult General Chief complaint: Vaginal Bleeding <HELENA Kwok Last Filed: 03/01/23 15:38> Stated complaint: Vaginal <HELENA Kwok Last Filed: 03/01/23 15:38> Time Seen by Provider: 03/01/23 09:10 <Emerson Castaneda PA-C - Last Filed: 03/01/23 15:38> Source: patient <HELENA Kwok Last Filed: 03/01/23 15:38> Mode of arrival: ambulatory <HELENA Kwok Last Filed: 03/01/23 15:38> Limitations: no limitations <Emerson Castaneda PA-C - Last Filed: 03/01/23 15:38> History of Present Illness HPI narrative: This is a 37-year-old female Who presents to the ED with chief complaint of lower abdominal cramping and vaginal bleeding. Recently discharged from ED with diagnosis of incomplete miscarriage. She was seen by OB yesterday and given prescription for Cytotec and other supportive measures. She was not able to warp picker the medications. also endorses nausea and vomiting. Denies fevers, chills, syncope, shortness of breath, <Emerson Castaneda PA-C - Last Filed: 03/01/23 15:38> Related Data Home medications: Home Medications Medication Instructions Recorded Confirmed dulaglutide 4.5 mg/0.5 mL 4.5 mg subcut WEEKLY 01/23/23 subcutaneous pen injector (Trulicity) <HELENA Kwok Last Filed: 03/01/23 15:38> Allergies/adverse reactions: Allergies Allergy/AdvReac Type Severity Reaction Status Date / Time amoxicillin AdvReac Rash Verified 03/01/23 13:55 <HELENA Kwok Last Filed: 03/01/23 15:38> Review of Systems Review of Systems: All systems as dictated in HPI <HELENA Kwok Last Filed: 03/01/23 15:38> PMFSH Past Medical History Medical History: Medical History (Updated 03/01/23 @ 13:54 by Bassam Jensen DO) Diabetes type 2, controlled Enlarged thyroid <Emerson Castaneda PA-C - Last Filed: 03/01/23 15:38> Family History Family History: Family History Other Diabetes mellitus <HELENA Kwok Last Filed: 03/01/23 15:38> Social History Social History: Social History Smoking packs per day: 0.5 Smoking cigarettes per day: 10.0 Smoking status: Current every day smoker Tobacco type: cigarettes Alcohol intake: never Substance use: never Substance use type: does not use Lack of Transportation: No Lack of Food: Never True Current Housing: I Have Housing Concerned About Future Housing: No Difficulty Paying Gas/Electric Bills: No Difficulty Paying for Meds: No Currently Unemployed: No Difficulty w/ Childcare or Family Care: No <HELENA Kwok Last Filed: 03/01/23 15:38> Exam Narrative: GENERAL: Appears in pain. Obese. HEAD: Normocephalic, atraumatic. EYES: PERRLA and EOMI. ENT: Nares clear, no rhinorrhea or epistaxis. Mucous membranes moist. Oropharynx without tonsillar hypertrophy exudate or other lesions. NECK: Supple. No adenopathy or masses. CHEST: No respiratory distress. Clear to auscultation. No wheezes rales or rhonchi HEART: Regular rate and rhythm. No murmur heard. Normal peripheral pulses. ABDOMEN: mild lower tenderness. Soft, nondistended, normal active bowel sounds. MSK: Normal range of motion. No edema. SKIN: Warm, dry, no rash. NEURO: Alert and oriented x3. No focal deficits. PSYCH: Normal mood and affect. exam done with female RN lubrication worker present: mild amount of dark blood product in the vaginal vault. No pooling of blood. No products of conception visualized. No other discharge. <HELENA Kwok Last Filed: 03/01/23 15:38> Course Course Emergency Course: consult 1030: Spoke with patient's OB, Dr. Hartman who recommends continuing with 600 mcg misoprostol PO, and pain control here. states that she should have Chen and Kimberly to her pharmac
[2023-03-01] MEDS: miSOPROStol 200 MCG TABLET 600 MCG PO (10:56)
--- NOTE | 2023-03-01 11:32 | ECG_ITS ---
Measurements Intervals [place] Rate: 81 P: 80 RI: 135 QRS: 28 QRSD: 110 T: 38 QT: 376 QTc: 437 Interpretive Statements SINUS RHYTHM DELAYED PRECORDIAL R/S TRANSITION ST ELEVATION IN ANT/HIGH LAT LEADS- PROBABLY EARLY REPOLARIZATION BASELINE ARTIFACT- I, III, AVL BORDERLINE ECG NO PREVIOUS ECG AVAILABLE FOR COMPARISON Electronically Signed On 03-01-2023 12:23:58 RUBBER EXTRUSION MACHINE OPERATOR by Bipin Szymanski D.O.
[2023-03-01] MEDS: LACTATED RINGERS 1,000 ML 30 ML IV CONT (13:15)
--- NOTE | 2023-03-01 13:31 | WPDANESEPPF ---
Anes - Initial Pre Proc Eval Procedure: Operation Date: 03/01/23 14:00 Proposed Procedures p Suction Dilation and Curettage - Jose Elias Hartman MD Date/Time: 03/01/23 13:31 Surgeon: Jose Elias Hartman MD Pre Op Diagnosis: Incomplete Ab Patient Data Age: 37 Gender: F Height: Weight: Last Vital Signs Temp 36.6 C 03/01/23 10:46 Pulse 87 03/01/23 12:45 Resp 26 H 03/01/23 12:45 BP 139/88 03/01/23 12:45 Pulse Ox 98 03/01/23 12:45 Allergies Allergy/AdvReac Type Severity Reaction Status Date / Time amoxicillin AdvReac Rash Verified 02/28/23 14:44 Home Medications Medication Instructions Recorded Confirmed Type dulaglutide 4.5 mg/0.5 mL 4.5 mg subcut WEEKLY 01/23/23 History subcutaneous pen injector (Trulicity) vitamin#30 30 mg iron-10 1 cap PO DAILY #90 caps 01/23/23 01/23/23 Rx mg iron-folic acid 1 mg-omg3 capsule misoprostol 200 mcg tablet 800 mcg vaginal ONCE #6 tabs 02/28/23 02/28/23 Rx hydrocodone 5 mg-acetaminophen 325 1 tablet PO Q3H PRN pain #10 tabs 03/01/23 03/01/23 Rx mg tablet ondansetron 4 mg disintegrating 4 mg PO Q6H PRN nausea and 03/01/23 03/01/23 Rx tablet vomiting #7 tabs Laboratory Tests 03/01/23 08:45 WBC 9.2 K/mm3 (4.5-10.0) RBC 4.63 M/mm3 (4.2-5.4) Hgb 13.0 g/dL (12.0-15.0) Hct 41.0 % (37.0-47.0) MCV 88.6 fl (80-100) MCH 28.1 pg (26-34) MCHC 31.7 L g/dl (32-36) RDW 14.6 H % (11.5-14.5) Plt Count 254 k/mm3 (150-375) MPV 10.0 fl (7.4-10.4) Immature Gran % (Auto) 0.5 % (0-0.5) Neut % (Auto) 70.7 % (45.5-73.1) Lymph % (Auto) 21.6 % (18.3-44.2) [place] % (Auto) 6.2 % (2.6-8.5) Eos % (Auto) 0.7 % (0-4.4) Baso % (Auto) 0.3 % (0.2-1.2) Lymph # (Auto) 1.99 K/mm3 (0.9-3.2) [place] # (Auto) 0.6 K/mm3 (0.1-0.6) Eos # (Auto) 0.1 K/mm3 (0-0.3) Baso # (Auto) 0.0 K/mm3 (0.0-0.1) Abs Immat Gran (auto) 0.05 H K/mm3 (0.00-0.031) Absolute Neuts (auto) 6.5 K/mm3 (1.3-6.7) Absolute Nucleated RBC 0.0 K/mm3 (0.0-0.012) Nucleated RBC % 0.0 % (0.0-0.2) Sodium 135 L mmol/L (137-145) Potassium 3.9 mmol/L (3.4-5.0) Chloride 105 mmol/L (98-107) Carbon Dioxide 21 L mmol/L (22-30) Anion Gap 9 mmol/L (8-16) BUN 5 L mg/dL (7-17) Creatinine 0.50 L mg/dL (0.7-1.0) Estim Creat Clear Calc Not Reportable Estimated GFR > 60 (59 - ) Glucose 225 H mg/dL (65-110) Calcium 9.2 mg/dL (8.4-10.2) Total Bilirubin 0.7 mg/dL (0.2-1.3) AST 19 U/L (14-36) ALT 16 U/L (6-35) Alkaline Phosphatase 65 U/L (38-126) Total Protein 8.0 g/dL (6.3-8.2) Albumin 4.1 g/dL (3.5-5.1) Patient hx anesthesia problems: none Family hx anesthesia problems: none Results Review: All pre-operative results and documents have been reviewed as part of the pre-operative evaluation. [facility] Past Medical History Medical History (Updated 03/01/23 @ 13:54 by Bassam Jensen DO) Diabetes type 2, controlled Enlarged thyroid Family History Family History Other Diabetes mellitus Social History Social History Smoking packs per day: 0.5 Smoking cigarettes per day: 10.0 Smoking status: Current every day smoker Tobacco type: cigarettes Alcohol intake: never Substance use: never Substance use type: does not use Lack of Transportation: No Lack of Food: Never True Current Housing: I Have Housing Concerned About Future Housing: No Difficulty Paying Gas/Electric Bills: No Difficulty Paying for Meds: No Currently Unemployed: No Difficulty w/ Childcare or Family Care: No Anes - Eval Final PreProcedure Day of Procedure 03/01/23 13:31 Patient weight: obese Heart: regular rate and rhythm Lenora
[2023-03-01] MEDS: DOXYCYCLINE 100 MG/NS 100 ML 100 MG/100 ML BAG IVPB (13:33)
--- NOTE | 2023-03-01 13:41 | WPDHPUPDATE1 ---
History and Physical Update Update Date/Time: 03/01/23 13:41 History and Physical has been reviewed, including an updated exam of the patient. She was diagnosed with incomplete miscarriage yesterday and started having increase cramping and bleeding and presented to ED. She was given dose of misoprostol but she did not tolerate the cramping pain and was given option of dilation and curettage which she agreed to. Discussed risk benefits and alternatives. She enquired about the dermoid cyst removal, discussed with her as yesterday that this needs to be evaluated by welding machine operator electron beam oncology due to the increased ca125 and risk of malignancy and additional procedures that would need to be done at time of surgery if it is malignant, that appointment is pending.. Questions answered. Risks, benefits, and alternatives have been discussed and questions answered. Patient agrees to proceed with procedure.
[2023-03-01] MEDS: METHYLERGONOVINE MALEATE 0.2 MG/ML VIAL IM (14:16)
--- NOTE | 2023-03-01 14:59 | W.PM.PROC2 ---
Procedure Note - Detailed Date of Procedure 03/01/23 Pre-op Diagnosis Incomplete Ab Post-op Diagnosis Same Procedure Performed Suction Dilation and curettage Surgeon Jose Elias Hartman MD Anesthesia MAC and Local Indications Incomplete miscarriage Findings Tissue at os, cervix dilated, moderate tissue obtained. Description of Procedure After informed consent was obtained patient was taken to the operating room and adequate IV sedation was administered she was placed in low lithotomy position and prepped and draped in sterile fashion attention was turned to the vagina speculum was inserted single-tooth tenaculum placed on anterior lip of the cervix 10 cc of 1% lidocaine plain was injected at the cervical vaginal interface at 2:58 a.m. and 10:00 a.m.. At the cervix there was a large piece of placental tissue that had the cervix dilated visually to 3 this tissue was removed with ring forceps. There was other tissue in the lower segment. The uterus was sound to 8 cm. A size 8 suction curette was passed until minimal tissue was obtained. There was a large amount of tissue anterior uterus. The uterine cavity was sharply curetted and more tissue was obtained and the suction curette was passed until minimal tissue obtained this sharp was passed again small amount of tissue obtained and a section was passed no tissue was obtained hemostasis was noted. During the procedure I instructed Anesthesia to give 0.2 mg of Methergine IM. Sponge count was correct patient tolerated procedure well. Estimated Blood Loss 100 Drains No Packing No Pathology Yes (Products of conception) Complications No immediate complications Condition Stable Disposition PACU [facility] Billing Surgery - Charge Forward: Surgery Billing
[2023-03-01 15:28] LABS: Glucose Point of Care 205 mg/dl (65-105)
[2023-03-01] MEDS: LABETALOL HCL INJ 100 MG/20 ML VIAL IV PUSH ×2 (15:47→16:03)
[2023-03-01] MEDS: SCOPOLAMINE 1 MG PATCH 1 PATCH TRANSDERM (16:08)
== END 2023-03-01 16:45 | disposition home or self-care (01) ==
LOC: ANHED 09:57 → ANHSURGERY 11:44
PROVIDERS: Emergency Medicine; Emergency Provider Physician Assistant; PCP Physician Assistant; Visit Provider Obstetrics & Gynecology
PROC: (CPT 59812; principal; 2023-03-01 14:00)
DX: O03.4 Incomplete spontaneous abortion without complication (principal); E11.9 Type 2 diabetes mellitus without complications; F17.210 Nicotine dependence, cigarettes, uncomplicated
CPT/HCPCS: 59812; 36415; 80053; 82948; 85025; 86900; 86901; 88305; 93005; A9270; J1885; J2210; J2250; J2270; J2405; J2550; J2704; J3010; J7120